=== PATIENT | male | born 1940 | race Caucasian/White ===

== ENCOUNTER 2018-10-30 09:05 | Day surgery (SDC) | payer MEDICARE ==
[~2018-10-30] VITALS: Ht 172.7 cm; Wt 78.5 kg
[~2018-10-30 09:05] MED LIST: ASPI1TAB PO; BALANCED SALT IRRIGATION SOLUTION 500ML BAG (FOR OR EYE MACHINE) As Ordered ONE; BANO25TA PO; BIMA01SOL OU; CEFUROXIME 1MG/0.1ML INTRACAMERAL INJ As Ordered ONE; COMB0.2S OU; CYCLOPENTOLATE 2% OPHTH SOLN 2ML BTL OD ONE; HEALON DUET PRO(HEALON 10MG/ML 0.55ML & HEALON ENDOCOAT 30MG/ML 0.85ML) As Ordered ONE; LIDOCAINE 1% SDV 5 ML VIAL As Ordered ONE; LIDOCAINE 3.5 % 1ML OPHTH TOPICAL GEL OU ONE; OFLOXACIN 0.3 % (OCUFLOX) OPTH SOL 5ML OD ONE; PHENYLEPHRINE 2.5% OPHTH SOL 2ML OD ONE; PHENYLEPHRINE HCL 10 % OPHTH. SOL 5ML OD PRN; POVIDONE-IODINE 5% OPHTH PREP SOL 30ML As Ordered ONE; PRED10PA2 PO; TOBRADEX OPHTH OINT 3.5 GM As Ordered ONE; TROPICAMIDE 1% OPHTH SOLN 2ML OD ONE; mitoMYcin 0.2 MG/VIAL KIT FOR OPHTHALMIC USE (J7315 PER 0.2MG) As Ordered ONE
[2018-10-30] MEDS ORDERED: ASPIRIN 81 MG CHEW TABLET PO STA (09:59)
[2018-10-30 12:00] VITALS: BP 144/82
[2018-10-30] MEDS ORDERED: MIDAZOLAM INJ 2 MG/2 ML VIAL (J2250) As Ordered ONE (12:19)
[2018-10-30] MEDS ORDERED: fentaNYL 100 MCG/2 ML INJECTION (J3010) As Ordered ONE (12:19)
[2018-10-30] MEDS ORDERED: PROPOFOL 200 MG/20 ML VIAL As Ordered ONE (12:20)
[2018-10-30] MEDS ORDERED: hydrALAZINE INJ 20 MG/ML VIAL As Ordered ONE (12:20)
--- NOTE | 2018-11-01 09:58 | RO ---
DATE OF PROCEDURE: 10/30/2018 PREOPERATIVE DIAGNOSES: Age-related nuclear cataract and open-angle glaucoma right eye. POSTOPERATIVE DIAGNOSES: Age-related nuclear cataract and open-angle glaucoma right eye. PROCEDURE PERFORMED: Phacoemulsification with posterior chamber intraocular lens implantation and insertion of Ex-Press shunt right eye. Lens used is AU00T0, 23.5 diopters. SURGEON: Zahira Valverde MD SLAG WHEELER: ANESTHESIA: Topical with sedation. DESCRIPTION OF PROCEDURE: Patient was prepped and draped in the usual fashion. Lid speculum was placed between the lids. First, attention was directed superiorly. The conjunctiva was opened up and in a fornix-based conjunctival flap, and then a Wet-Field cautery was used to cauterize the overlying sclera. A straight and bent crescent knives were used to create a triangular flap. It was carried up onto clear cornea. A pledget of mitomycin C was placed underneath the conjunctiva and left in place for 1 minute and irrigated with a copious amount of balanced salt solution. Attention was then directed to the cataract and to the temporal limbal area. The eye was fixated. A stab incision was made into the anterior chamber. 1% nonpreserved lidocaine was instilled, and viscoelastic was instilled. The eye was again fixated, and a 2.4 mm keratome was used to make a clear corneal temporal limbal incision. Malyugin ring was then placed into an manager finance and injected into the eye, first the distal scroll engaging the iris and then the proximal scroll engaged the iris. The distal scroll was placed with manipulation hook. The capsulorrhexis was begun with 30-gauge bent needle and carried out in circular fashion with capsulorrhexis forceps. Lens was hydrodissected, and the phacoemulsification unit was used to groove the nucleus in two meridians. The nucleus was cracked into four quadrants. Each quadrant was removed with the phacoemulsification unit. Any remaining cortex was removed with the irrigation and aspiration (I and A) unit. Capsular bag was refilled with viscoelastic, and a posterior chamber intraocular lens was placed into the capsular bag without difficulty. Any remaining viscoelastic was removed with the I and A unit, and the wound was sealed with one #10-0 nylon suture with the nylon buried. Attention was then directed superior again. The flap was reflected toward the cornea, and a 25-gauge needle was used to make a needle tract into the anterior chamber. The Ex-Press shunt was placed through the pre-made needle tract, and aqueous freely flowed. The scleral flap was tacked down with one #10-0 nylon suture at the apex. Conjunctiva was closed using two #8-0 Vicryl sutures, one at each apex, and one #10-0 nylon suture at the __cornea to the conjunctiva. TobraDex ointment was applied. Patch and shield were placed. Patient tolerated procedure well and went to recovery [facility] condition. [facility]
== END 2018-10-30 12:05 | disposition home or self-care (01) ==
LOC: M SDC 09:05
PROVIDERS: ATTEND Ophthalmology
DX: H25.11 Age-related nuclear cataract, right eye (principal); H40.10X0 Unspecified open-angle glaucoma, stage unspecified; I10 Essential (primary) hypertension; L40.8 Other psoriasis; F17.210 Nicotine dependence, cigarettes, uncomplicated; Z98.61 Coronary angioplasty status; I25.10 Atherosclerotic heart disease of native coronary artery without angina pectoris; Z79.82 Long term (current) use of aspirin; Z79.51 Long term (current) use of inhaled steroids
CPT/HCPCS: 66183; 66984; C1783; J2250; J3010; J7315; V2632

== ENCOUNTER 2019-05-14 16:27 | Inpatient (IN) | payer MEDICARE ==
[~2019-05-14] VITALS: Ht 170.2 cm; Wt 58.8 kg
[~2019-05-14 16:27] MED LIST changes: -ASPI1TAB PO; +ASPI81TA26 PO; -BALANCED SALT IRRIGATION SOLUTION 500ML BAG (FOR OR EYE MACHINE) As Ordered ONE; -CEFUROXIME 1MG/0.1ML INTRACAMERAL INJ As Ordered ONE; -CYCLOPENTOLATE 2% OPHTH SOLN 2ML BTL OD ONE; -HEALON DUET PRO(HEALON 10MG/ML 0.55ML & HEALON ENDOCOAT 30MG/ML 0.85ML) As Ordered ONE; -LIDOCAINE 1% SDV 5 ML VIAL As Ordered ONE; -LIDOCAINE 3.5 % 1ML OPHTH TOPICAL GEL OU ONE; -OFLOXACIN 0.3 % (OCUFLOX) OPTH SOL 5ML OD ONE; -PHENYLEPHRINE 2.5% OPHTH SOL 2ML OD ONE; -PHENYLEPHRINE HCL 10 % OPHTH. SOL 5ML OD PRN; -POVIDONE-IODINE 5% OPHTH PREP SOL 30ML As Ordered ONE; -TOBRADEX OPHTH OINT 3.5 GM As Ordered ONE; -TROPICAMIDE 1% OPHTH SOLN 2ML OD ONE; -mitoMYcin 0.2 MG/VIAL KIT FOR OPHTHALMIC USE (J7315 PER 0.2MG) As Ordered ONE
[2019-05-14 18:43] VITALS: BP 159/91
[2019-05-14] MEDS ORDERED: ACETAMINOPHEN TAB 650MG DOSE (2X325MG) PO PRN (19:00)
[2019-05-14] MEDS ORDERED: MOM 30ML SUSPENSION UDC PO PRN (19:00)
[2019-05-14] MEDS ORDERED: MAALOX 30 ML SUSP *UDC PO PRN (19:00)
[2019-05-14 19:20] VITALS: BP 152/78
[2019-05-14] MEDS ORDERED: QUEtiapine FUMARATE 25 MG TAB PO STA (19:26)
[2019-05-14] MEDS ORDERED: HALOPERIDOL 5 MG/ML VIAL (J1630) IV PRN (19:30)
[2019-05-14 19:47] LABS: HEMATOCRIT 38.3 % (42.0-52.0); HEMOGLOBIN 12.9 g/dl (13.5-17.5); MEAN CORPUSCULAR HEMOGLOBIN 31.5 pg (27.0-33.0); MEAN CORPUSCULAR HGB CONC 33.7 g/dl (32.0-36.5); MEAN CORPUSCULAR VOLUME 93.6 fl (80.0-96.0); PLATELET COUNT, AUTOMATED 202 10^3/uL (150-450); RED BLOOD COUNT 4.09 10^6/uL (4.30-6.10); WHITE BLOOD COUNT 14.8 10^3/uL (4.0-10.0)
[2019-05-14 20:00] VITALS: BP 153/82
[2019-05-14 20:16] LABS: BLOOD UREA NITROGEN 22 MG/DL (7-18); C REACTIVE PROTEIN QUANTITATIV < 0.30 MG/DL (0.00-0.30); CALCIUM LEVEL 10.3 MG/DL (8.8-10.2); CARBON DIOXIDE LEVEL 29 MEQ/L (21-32); CHLORIDE LEVEL 106 MEQ/L (98-107); CREATININE FOR GFR 1.38 MG/DL (0.70-1.30); ERYTHROCYTE SEDIMENTATION RATE 25 mm/hr (0-20); FREE T4 1.11 NG/DL (0.76-1.46); GLOMERULAR FILTRATION RATE 53.3 (>42); GLUCOSE, FASTING 139 MG/DL (70-100); SODIUM LEVEL 141 MEQ/L (136-145); THYROID STIMULATING HORMONE 0.893 uIU/ML (0.358-3.740); TROPONIN I < 0.02 NG/ML (< 0.10)
[2019-05-14 20:18] LABS: TOTAL T3 71.9 NG/DL (60.0-181.0); VITAMIN B12 LEVEL 357 PG/ML (247-911)
[2019-05-14] MEDS ORDERED: METOPROLOL 5 MG/5 ML VIAL IV PRN (20:45)
[2019-05-14] MEDS ORDERED: HALOPERIDOL 5 MG/ML VIAL (J1630) IM PRN (21:00)
[2019-05-14] MEDS: DOCUSATE SODIUM 100 MG CAP PO SCH (21:00)
[2019-05-14] MEDS: QUEtiapine FUMARATE 25 MG TAB PO SCH (21:00)
--- NOTE | 2019-05-14 22:06 | HPEPDOC ---
General Date of Admission May 14, 2019 at 18:40 Date of Service: May 14, 2019 Primary Care Physician: A Attending Physician: ANDRE HURST MD Chief Complaint Source: RN/MD, Old records Exam Limitations: Clinical conditions, Dementia, Hard of hearing History of Present Illness This admission was done and 05/14/2019 .This is a 78-year-old male with history of hemorrhagic CVA and subdural hematoma about 3-4 months ago. Patient was doing well until last night he developed some hallucination. This morning at 1 AM in the morning patient woke up screaming was unable to use his word and confused and agitated. He was brought to [facility] and CAT scan 2 was done and was negative for bleed or infarct. Patient blood pressure systolic was 200 and he was given hydralazine 20 mg.. He was transferred here for higher level of care because of no neurology at that hospital,.At present time, patient still confused but according to the family patient was having normal conversation until last night. Patient is agitated and restless so Haldol IM has been ordered for agitation. MRI order to rule out CVA. Case discussed with neurology's and Seroquel was added 25 mg twice a day and also EEG patient is placed on Observation telemetry.patient is a high risk for fall because of his increased agitation , so I placed him on1-1. Observation and initiate Haldol IM when necessary Home Medications Scheduled Aspirin (Aspirin EC) 81 Mg Tab, 162 MG PO DAILY, (Reported) Bisoprolol Fumarate (Bisoprolol Fumarate) 5 Mg Tablet, 2.5 MG PO DAILY, (Reported) Miscellaneous Medications [Patient Comments] , (Reported) PATIENT UNABLE TO ASSIST WITH MEDICATION RECONCILIATION. FAMILY MEMBER WHO ACCOMPANIED HIM DID NOT KNOW HIS MEDICATIONS. INFORMATION OBTAINED FROM PHARMACY AND FAMILY MEMBER PRESENT FOR ADMISION TO [facility] Allergies Coded Allergies: No Known Allergies (Unverified , 10/24/18) Past Medical History Medical History Chronic COPD Hypertension. Hemorrhagic CVA. History of atypical chest pain. Glaucoma legally blind hard of hearing. Surgical History right cataract surgery, glaucoma surgery Family History Significant Family History: Noncontributory, Hyperlipidemia, Other (unable to review due to confusion) Unable to review due to confusion Social History * Smoker: former Smoker Alcohol: Denies Drugs: denies Per son patient smoke but no alcohol or drugs A-FIB/CHADSVASC A-FIB History Current/History of A-Fib/PAF?: No Current PO Anticoag Therapy: No (SCD for DVT prophylaxis) Review of Systems Other systems Positive for confusion, positive agitation Positive blindness, positive hard of hearing. The rest of the 12 point review of systems normal Physical Examination General Exam: Positive: Other ( blindness and deaf) Eye Exam: Positive: PERRLA ENT Exam: Positive: Atraumatic, Pharynx Normal Neck Exam: Positive: Supple, JVD, thyromegaly; Negative: +2 carotid pulse wo bruit, Lymphadenopathy, Other Chest Exam: Positive: Clear to auscultation, Normal air movement Heart Exam: Positive: Rate Normal, Regular Rhythm Telemetry: Positive: No significant arrhythmia Abdomen Exam: Positive: Normal bowel sounds, Soft Extremity Exam: Positive: Normal pulses Skin Exam: Positive: Nl turgor and temperature Neuro Exam: Positive: Other (alert but confused. Moves all extremities but some weakness equally. Unable to do full neurological exam) Psych Exam: Positive: Mental status NL, Mood NL, Oriented x 3 Vital Signs Vital Signs Date Time Temp Pulse Resp B/P (MAP) Pulse Ox O2 Delivery O2 Flow Rate FiO2 05/14/19 20:00 99.2 106 20 153/82 (105) 98 Laboratory Data Labs 24H Laboratory Tests 2 05/14/19 19:31: Nucleated Red Blood Cells % (auto) 0.0, Erythrocyte Sedimentation Rate 25H, Anion Gap 6L, Glomerular Filtration Rate 53.3, Lactic Acid Level 1.7, Blood Urea Nitrogen 22H, Creatinine 1.38H, Sodium Level 141, Potassium Level 4.0, Chloride Level 106, Carbon Dioxide Level 29, Calcium Level 10.3H, Ammonia < 10, Troponin I < 0.02, C-Reactive Protein, Quantitative < 0.30, Vitamin B12 Level 357, Thyroid Stimulating Hormone (TSH) 0.893, Free Thyroxine 1.11, Total Triiodothyronine 71.9 CBC/BMP Laboratory Tests 05/14/19 19:31 Red Blood Count 4.09 L, Mean Corpuscular Volume 93.6, Mean Corpuscular Hemoglobin 31.5, Mean Corpuscular Hemoglobin Concent 33.7, Red Cell Distribution Width 13.2, Calcium Level 10.3 H Microbiology Microbiology 05/14/19 Blood Culture, Received Pending Assessment/Plan #1 acute delirium; could be secondary to CVA versus psychosis. Neuro check every 4 hour observation telemetry, neurology consult, will start patient on Haldol when necessary by station and also we added Seroquel 25 mg twice a day, neurology. K discuss with neurology. Patient is a fall risks. He is very agitated We will do 1-1 observation for fall percussion. Since patient has a history of subdural hematoma from fall #2. Expressive aphasia; improving CAT scan head so far negative for bleed or infarct. MRI of the brain in order, no check every hour. We will keep nothing by mouth for now and get speech eval in a.m.,. Discussed with neurology #3 acute encephalopathy; could be secondary to psychosis versus CVA or infection. UA shows some bacteria but no leukocyte. We will get urine culture and blood culture. #4. Muscle weakness,. Get PT, OT eval and case managed for discharge pending. #5. Accelerated hypertension. Patient received hydralazine before transfer to this hospital. We will keep blood pressure between 160 and 175 systolic. Initial blood pressure was 200 systolic. Will do Lopressor 5 mg IV every 6 hours when necessary for blood pressure systolic above 175. #6. History of hemorrhagic CVA and subdural hematoma. So far. CAT scan head negative for bleed. #7. Questionable Lewy body dementia per Family. Neurology is aware. #8. Chronic COPD. Patient not wheezing at present, so will do albuterol when necessary for shortness of breath #9. ALBERT Vs CKD No baseline creatinine in our system. Creatinine from [place] was also similar possibly due to Acute urinary retention had straight cath done with output of 600 ml. This could have been contributing to his agitation also. bladder scan prn and straight cath > 300 ml SCD to lower extremity for DVT prophylaxis. Patient stable. Case discussed with Dr. Hurst hospitalists. Case also discussed with family at bedside and also with telemetry nurse . Time spent 55 minutes Plan / VTE VTE Prophylaxis Ordered?: Yes VTE Exclusion Pharmacological: Bleeding Risk Attending Note Attending Note I have seen and evaluated the patient. I have reviewed the above note and discussed the assessment and plan with the PA and agree with the documentation above. ANALI DENNISON PA-C May 14, 2019 21:29 ANDRE HURST MD May 15, 2019 01:51
[2019-05-14] MEDS ORDERED: PATIENT COMMENTS (22:13)
[2019-05-14] MEDS: NS 1,000 ML IV SCH (22:20)
[2019-05-14 22:27] LABS: APPEARANCE, URINE CLEAR (CLEAR); BACTERIA, URINE AUTO NEGATIVE (NEGATIVE); BILIRUBIN, URINE AUTO NEGATIVE (NEGATIVE); BLOOD, URINE BLOOD 3+ (NEGATIVE); COLOR, URINE YELLOW (YELLOW); GLUCOSE, URINE (UA) AUTO NEGATIVE (NEGATIVE); KETONE, URINE AUTO TRACE mg/dL (NEGATIVE); LEUKOCYTE ESTERASE, URINE AUTO NEGATIVE (NEGATIVE); MUCUS, URINE SMALL (NEGATIVE); NITRITE, URINE AUTO NEGATIVE (NEGATIVE); PROTEIN, URINE AUTO NEGATIVE (NEGATIVE); RBC, URINE AUTO 89 /HPF (0-3); SPECIFIC GRAVITY URINE AUTO 1.013 (1.002-1.035); SQUAMOUS EPITHELIAL CELL UR AU 0 /HPF (0-6); UROBILINOGEN, URINE AUTO 0.2 mg/dL (0.0-2.0); WBC, URINE AUTO 13 /HPF (0-3)
[2019-05-14] MEDS ORDERED: BISO5TAB5 PO (22:28)
[2019-05-14 22:50] LABS: AMPHETAMINES URINE REFLEX NEGATIVE (NEGATIVE); BARBITURATES URINE REFLEX NEGATIVE (NEGATIVE); BENZODIAZEPINES URINE REFLEX NEGATIVE (NEGATIVE); CANNABINOIDS URINE REFLEX NEGATIVE (NEGATIVE); COCAINE METABOLITE URINE REFLE NEGATIVE (NEGATIVE); METHADONE URINE REFLEX NEGATIVE (NEGATIVE); OPIATES URINE REFLEX NEGATIVE (NEGATIVE); PHENCYCLIDINE URINE REFLEX NEGATIVE (NEGATIVE)
[2019-05-14 23:59] VITALS: BP 165/98
[2019-05-15] MEDS: LABETALOL HCL 100 MG/20 ML VIAL IV SCH ×3 (02:00→14:00)
[2019-05-15] MEDS: HALOPERIDOL 5 MG/ML VIAL (J1630) IV PRN ×2 (03:17→12:38)
[2019-05-15 04:00] VITALS: BP 174/105
[2019-05-15 04:28] LABS: BASO # 0.1 10^3/uL (0.0-0.2); BASO % 0.7 % (0.0-1.0); EOS # 0.1 10^3/uL (0.0-0.50); EOS % 0.7 % (0.0-3.0); HEMATOCRIT 33.5 % (42.0-52.0); HEMOGLOBIN 11.3 g/dl (13.5-17.5); LYMPH # 1.5 10^3/uL (1.5-4.5); LYMPH % 12.1 % (24.0-44.0); MEAN CORPUSCULAR HEMOGLOBIN 31.7 pg (27.0-33.0); MEAN CORPUSCULAR HGB CONC 33.7 g/dl (32.0-36.5); MEAN CORPUSCULAR VOLUME 94.1 fl (80.0-96.0); MONO # 1.2 10^3/uL (0.0-0.8); MONO % 9.9 % (0.0-5.0); NEUTROPHILS # 9.3 10^3/uL (1.8-7.7); NEUTROPHILS % 76.3 % (36.0-66.0); PLATELET COUNT, AUTOMATED 179 10^3/uL (150-450); RED BLOOD COUNT 3.56 10^6/uL (4.30-6.10); WHITE BLOOD COUNT 12.1 10^3/uL (4.0-10.0)
[2019-05-15 04:59] LABS: CALCIUM LEVEL 9.4 MG/DL (8.8-10.2); CREATININE FOR GFR 1.4 MG/DL (0.70-1.30); GLOMERULAR FILTRATION RATE 52.5 (>42)
[2019-05-15 08:00] VITALS: BP 214/120
[2019-05-15] MEDS: QUEtiapine FUMARATE 25 MG TAB PO SCH ×2 (08:18→21:24)
[2019-05-15] MEDS: DOCUSATE SODIUM 100 MG CAP PO SCH ×2 (08:18→21:24)
[2019-05-15] MEDS: ENOXAPARIN 40 MG/0.4 ML SYRINGE (J1650) SC SCH (08:18)
[2019-05-15] MEDS: ASPIRIN 81 MG ENTERIC TAB PO SCH (08:18)
[2019-05-15] MEDS: NS 1,000 ML IV SCH (10:30)
[2019-05-15 12:00] VITALS: BP 167/84
[2019-05-15 16:00] VITALS: BP 130/74
[2019-05-15] MEDS ORDERED: METOPROLOL 5 MG/5 ML VIAL IV PRN (17:15)
--- NOTE | 2019-05-15 17:17 | IPNPDOC ---
Text Note Date of Service The patient was seen on 05/15/19. NOTE S: sitter present. patient is blind and severely hard of hearing. he is still confused (talking about home, kitchen,etc) but is not agitated. He has not yet received MRI or EEG as staff states he is not cooperative and claustrophobic. Avoiding benzodiazepines given his altered mental status. He states no pain, feels fine. O: Vitals as below General: confused, alert but not oriented to place,time. SKIN: lavern macular rash, non confluent located over arms bilaterally and thighs/knees. does not involve face, palms, soles of feet , abdomen, chest or back. HRRR LCTA Ext: no edema Neuro: moving all 4 extremities. 1 person assist to walk to bathroom commode A/P: 1) acute delirium/ encephalopathy - unclear etiology (ie toxic or metabolic) vs CVA. CXR pending Neuro checks; neurology consult; MRI pending (not yet done) Haldol IM prn agitation; started on Seroquel 25 mg twice a day last night; Blood cultures and urine cultures pending Speech therapy recommended dysphagia diet with pureed solids and thin liquids via small straw sips Patient is cleared by PT as not needing rehab or aggressive therapies 2) rash - unknown onset or duration. Has leukocytosis. no new medications except haldol and seroquel and does not appear to be maculopapular drug ex anthem. monitor for now. blood cultures pending 3) Accelerated hypertension. - blood pressures controlled after receiving medications. monitor for now 4) . History of hemorrhagic CVA and subdural hematoma. - CT negative; await MRI 5) Questionable Lewy body dementia per Family. Neurology consulted 6) COPD without exacerbation- stable 7) ALBERT Vs CKD with urinary retention No baseline creatinine in our system. Creatinine from [place] was also similar bladder scan/straight cath prn. start FLOMAX DVT prophylaxis: SCD ,enoxaprin Current Medications Medications (Trade) Dose Ordered Sig/Elizabeth Route PRN Reason Start Time Stop Time Status Last Admin Dose Admin Acetaminophen (Tylenol Tab) 650 mg Q4H PRN PO PAIN OR FEVER 05/14/19 19:00 Al Hydrox/Mg Hydrox/Simethicone (Mylanta) 30 ml DAILY PRN PO DYSPEPSIA 05/14/19 19:00 Aspirin (Ecotrin) 162 mg DAILY PO 05/15/19 09:00 05/15/19 08:18 Docusate Sodium (Colace) 100 mg BID PO 05/14/19 21:00 05/15/19 08:18 Enoxaparin Sodium (Lovenox) 40 mg DAILY SC 05/15/19 09:00 05/15/19 08:18 Haloperidol (Haldol) 1 mg Q6HP PRN IM AGITATION 05/14/19 21:00 05/15/19 01:38 DC 05/14/19 21:06 Haloperidol (Haldol) 1 mg Q6HP PRN IV AGITATION 05/14/19 19:30 05/14/19 21:01 DC Haloperidol (Haldol) 2 mg Q6HP PRN IV AGITATION 05/15/19 01:45 05/15/19 12:38 Home Med (Med Rec Complete!) ASDIRECTED XX 05/14/19 22:30 05/14/19 22:30 DC Labetalol HCl (Normodyne, Trandate) 5 mg Q6H IV 05/15/19 02:00 05/15/19 08:14 Magnesium Hydroxide (Milk Of Magnesia) 30 ml DAILY PRN PO CONSTIPATION 05/14/19 19:00 Metoprolol Tartrate (Lopressor) 5 mg Q6HP PRN IV PRN for sbp>175 05/14/19 20:45 05/15/19 01:38 DC Quetiapine Fumarate (SEROquel) 25 mg BID PO 05/14/19 21:00 05/15/19 08:18 Quetiapine Fumarate (SEROquel) 25 mg BID STAT PO 05/14/19 19:26 05/14/19 20:33 DC Sodium Chloride 1,000 ml @ 84 mls/hr [id number] IV 05/14/19 19:26 05/15/19 10:30 VS,Fishbone, I+O VS, Fishbone, I+O Laboratory Tests 05/14/19 19:31 Red Blood Count 4.09 L, Mean Corpuscular Volume 93.6, Mean Corpuscular Hem oglobin 31.5, Mean Corpuscular Hemoglobin Concent 33.7, Red Cell Distribution Width 13.2, Calcium Level 10.3 H 05/15/19 04:19 Red Blood Count 3.56 L, Mean Corpuscular Volume 94.1, Mean Corpuscular Hemoglobin 31.7, Mean Corpuscular Hemoglobin Concent 33.7, Red Cell Distribution Width 13.3, Calcium Level 9.4, Neutrophils (%) (Auto) 76.3 H, Lymphocytes (%) (Auto) 12.1 L, Monocytes (%) (Auto) 9.9 H, Eosinophils (%) (Auto) 0.7, Basophils (%) (Auto) 0.7, Neutrophils # (Auto) 9.3 H, Lymphocytes # (Auto) 1.5, Monocytes # (Auto) 1.2 H, Eosinophils # (Auto) 0.1, Basophils # (Auto) 0.1 Vital Signs Date Time Temp Pulse Resp B/P (MAP) Pulse Ox O2 Delivery O2 Flow Rate FiO2 05/15/19 14:00 87 148/70 05/15/19 08:00 97.4 22 94 I&O- Last 24 Hours up to 6 AM 05/15/19 05:59 Intake Total 466 ml Output Total 600 ml Balance -134 ml GEORGE BEACH DO May 15, 2019 17:17
[2019-05-15] MEDS ORDERED: SLF 3 ML SYR IV PRN (17:30)
--- NOTE | 2019-05-15 18:06 | REP ---
Clinical: Aspiration. Technique: AP and lateral . Comparison: None . Findings: The mediastinum and cardiac silhouette are stable and within normal limits for portable technique. The lung [place] demonstrate diffuse chronic interstitial changes without acute consolidation, effusion, or pneumothorax. Skeletal structures are intact. Impression: No acute cardiopulmonary process appreciated. No acute solid lesion or effusion. Electronically Signed by Cyril Navas MD 05/15/2019 05:58 P
[2019-05-15 20:00] VITALS: BP 158/70
[2019-05-15] MEDS ORDERED: OLANZapine 2.5MG TABLET PO ONE ×2 (21:45→23:15)
[2019-05-15] MEDS: SLF 3 ML SYR IV SCH (22:08)
[2019-05-16] VITALS: BP 150/84
[2019-05-16 04:00] VITALS: BP 162/81
[2019-05-16] MEDS ORDERED: diphenhydrAMINE INJ 50MG/ML VIAL (J1200) IV ONE ×2 (05:00)
[2019-05-16 05:20] VITALS: BP 174/98
[2019-05-16] MEDS: amLODIPine 5 MG TAB PO SCH ×2 (05:22→06:48)
[2019-05-16] MEDS: SLF 3 ML SYR IV SCH (06:48)
[2019-05-16 06:52] VITALS: BP 182/84
[2019-05-16 08:00] VITALS: BP 157/97
[2019-05-16] MEDS ORDERED: BISOPROLOL FUM 2.5 MG PER 1/2TAB PO SCH (09:00)
[2019-05-16] MEDS ORDERED: LISINOPRIL *2.5 MG* TAB PO SCH (09:00)
[2019-05-16] MEDS ORDERED: QUEtiapine FUMARATE 25 MG TAB PO SCH (09:00)
[2019-05-16] MEDS ORDERED: BISOPROLOL FUMARATE 5 MG TAB PO SCH (09:00)
[2019-05-16] MEDS: DOCUSATE SODIUM 100 MG CAP PO SCH (09:04)
[2019-05-16 09:05] VITALS: BP 157/97
[2019-05-16] MEDS: ASPIRIN 81 MG ENTERIC TAB PO SCH (09:05)
[2019-05-16] MEDS: ENOXAPARIN 40 MG/0.4 ML SYRINGE (J1650) SC SCH (09:06)
--- NOTE | 2019-05-16 09:55 | REP ---
CT BRAIN WITHOUT CONTRAST: HISTORY: CVA. Altered mental status. No comparison brain imaging. FINDINGS: Preliminary digital rn delivery radiograph is unremarkable. Bone window settings show no bony calvarial lesion. Visualized paranasal sinuses are clear. No intraorbital abnormality is seen. There is moderate vascular calcification in the distal vertebral and distal carotid arteries bilaterally. On soft tissue window settings, there is moderate generalized atrophy. There is physiologic calcification of the basal ganglia. There is no evidence of intracranial hemorrhage. There is an old inferior cerebellar hemisphere infarct on the right. There is a small old lacunar infarct in the periventricular white matter of the right frontal lobe posteriorly. There is no CT evidence of acute infarction, hemorrhage, mass, extra-axial fluid collection or midline shift. IMPRESSION: Findings consistent with old infarcts in the right inferior cerebellar hemisphere, and in the right posterior frontal lobe periventricular white matter. Diffuse atrophy and vascular calcification. No acute intracranial abnormality seen. Electronically Signed by Uvaldo Quick MD 05/16/2019 10:16 A
[2019-05-16 10:29] LABS: HEMATOCRIT 36.8 % (42.0-52.0); HEMOGLOBIN 12.1 g/dl (13.5-17.5); MEAN CORPUSCULAR HEMOGLOBIN 31.6 pg (27.0-33.0); MEAN CORPUSCULAR HGB CONC 32.9 g/dl (32.0-36.5); MEAN CORPUSCULAR VOLUME 96.1 fl (80.0-96.0); PLATELET COUNT, AUTOMATED 173 10^3/uL (150-450); RED BLOOD COUNT 3.83 10^6/uL (4.30-6.10); WHITE BLOOD COUNT 11.2 10^3/uL (4.0-10.0)
[2019-05-16 10:43] LABS: CALCIUM LEVEL 9.6 MG/DL (8.8-10.2); CREATININE FOR GFR 1.27 MG/DL (0.70-1.30); GLOMERULAR FILTRATION RATE 58.7 (>42); POTASSIUM SERUM 3.4 MEQ/L (3.5-5.1)
[2019-05-16] MEDS ORDERED: LISI-1046 PO (10:53)
--- NOTE | 2019-05-16 11:01 | IPNPDOC ---
Text Note Date of Service The patient was seen on 05/16/19. NOTE S: patient refused BP medications this AM (Norvasc).He required olanzapine 2.5mg at 2200 and 2320 last night. Son present and states he is at baseline and normally agitated. Son and patient want to return home. O: Vitals as below General: cooperative with son in room. alert/oriented HRRR LCTA Skin: no rash A/P: 1) acute delirium/ encephalopathy - unclear etiology (ie toxic or metabolic) vs CVA. - RESOLVED no signs of infection or aspiration. Neuro checks; neurology consult; MRI cancelled - as patient refusing; Check CT Head and if no changes, discharge home, since he is back to baseline started on Seroquel 25 mg twice a day - son states patient at baseline and will not continue med at home Blood cultures and urine cultures negative so far. Speech therapy recommended dysphagia diet with pureed solids and thin liquids via small straw sips - this was during delerium phase - will request repeat ST eval. Patient is cleared by PT as not needing rehab or aggressive therapies 2) rash - resolved 3) Essential HTN - adjust BP medication for better coverage - increase bistopolol to 5mg daily, dc norvasc and add lisinopril 2.5mg BID; increases in Bp may be due to his agitation at being in hospital. son will monitor BP at home and decide if he wants to continue with higher doses of med. 4) . History of hemorrhagic CVA and subdural hematoma. - initial CT negative; will repeat and if negative DC Home. Hesitant to increase ASA at this time. Will need to follow up with his outpatient neurologist. 5) Questionable Lewy body dementia per Family. Neurology consulted 6) COPD without exacerbation- stable 7) ALBERT Vs CKD with urinary retention - RESOVLED VS,Fishbone, I+O VS, Fishbone, I+O Vital Signs Date Time Temp Pulse Resp B/P (MAP) Pulse Ox O2 Delivery O2 Flow Rate FiO2 05/16/19 06:52 182/84 (116) 05/16/19 06:48 95 05/16/19 04:00 98.1 20 96 I&O- Last 24 Hours up to 6 AM 05/16/19 06:00 Intake Total 300 ml Output Total 1350 ml Balance -1050 ml GEORGE BEACH DO May 16, 2019 07:38
--- NOTE | 2019-05-16 17:16 | DS.PDOC ---
Discharge Summary General Date of Admission May 14, 2019 at 18:40 Date of Discharge 05/16/19 Attending Physician: GEORGE BEACH DO Specialist/Consultants Involve: RESHMA AJ MD Discharge Summary PROCEDURES PERFORMED DURING STAY:none ADMITTING DIAGNOSES: acute delirium; Expressive aphasia; acute encephalopathy Muscle weakness,. Accelerated hypertension. History of hemorrhagic CVA and subdural hematoma. Chronic COPD. ALBERT Vs CKD DISCHARGE DIAGNOSES: 1) acute delirium/ encephalopathy - unclear etiology (ie toxic or metabolic) vs CVA. - RESOLVED 2) rash/ dermatitis - resolved 3) Essential HTN 4) History of hemorrhagic CVA and subdural hematoma. 5) Questionable Lewy body dementia per Family - no official diagnosis. 6) COPD without exacerbation- stable 7) ALBERT with urinary retention - RESOLVED COMPLICATIONS/CHIEF COMPLAINT: Altered Mental Status. HISTORY OF PRESENT ILLNESS: 78-year-old male with history of hemorrhagic CVA and subdural hematoma about 3-4 months ago. Patient was doing w ell until last night he developed some hallucination. This morning at 1 AM in the morning patient woke up screaming was unable to use his word and confused and agitated. He was brought to [facility] and CAT scan 2 was done and was negative for bleed or infarct. Patient blood pressure systolic was 200 and he was given hydralazine 20 mg.. He was transferred here for higher level of care because of no neurology at that hospital,.At present time, patient still confused but according to the family patient was having normal conversation until last night. Patient is agitated and restless so Haldol IM has been ordered for agitation. MRI order to rule out CVA. Case discussed with neurology's and Seroquel was added 25 mg twice a day and also EEG patient is placed on Observation telemetry.patient is a high risk for fall because of his increased agitation , so I placed him on1-1. Observation and initiate Haldol IM when necessary See H&P for detials HOSPITAL COURSE: patient was admitted. his speech cleared and he had no motor weakness. He was agitated, verbally aggressive and refused tele, MRI, EEG. He was non cooperative for neuro checks. He was started on Seroquel 25mg and Haldol for HS sedation. Workup showed no source for infectious etiology (negative blood cultures, urine cultures). Speech therapy consulted and recommended dysphagia diet with pureed solids and thin liquid via straw. His blood pressure was elevated but unclear if this was due to agitation. His BP medications were adjusted - increased bistoprolol to 5mg daily and added lisinopril 2.5mg BID. His mentation and speech cleared and son visited on day of discharge and states patient was back to his normal baseline (which includes agitation/angry demeanor). Speech therapy was reconsulted and swallow improved and "Son educated on risk of aspiration & airway occlusion if pt is provided w/ regular solids and allowed to feed himself, d/t impulsive bite size, pace of intake, & poor positioning. Educated on allowed & not allowed level 2 diet options and recommendations for upright in chair & small bite/sip. " Patient agreed to have CT scan performed prior to discharge which showed no c hange compared to admission. patient is being discharge in stable condition and will follow up with his nuerologist in [place]. DISCHARGE MEDICATIONS: Please see below. ALLERGIES: Please see below. PHYSICAL EXAMINATION ON DISCHARGE: VITAL SIGNS: Please see below. General: cooperative with son in room. alert/oriented HRRR LCTA Skin: no rash LABORATORY DATA: Please see below. ACTIVITY: as tolerated DIET: pureed with thin liquids/straw until re-evaluated as outpatient by . DISCHARGE PLAN: discharge home DISCHARGE INSTRUCTIONS: 1. follow up with neurologist in 1-2 weeks 2. follow up with PCP in 5-7 days for recheck 3. Dysphagia diet precautions 4. discussed with son elevated BP and medication side effect profile/use DISCHARGE CONDITION: stable TIME SPENT ON DISCHARGE: 35 minutes. Vital Signs/I&Os Vital Signs Date Time Temp Pulse Resp B/P (MAP) Pulse Ox O2 Delivery O2 Flow Rate FiO2 05/16/19 09:05 157/97 05/16/19 09:04 90 05/16/19 08:00 98.0 20 98 I&O- Last 24 Hours up to 6 AM 05/16/19 06:00 Intake Total 300 ml Output Total 1350 ml Balance -1050 ml Laboratory Data Labs 24H Laboratory Tests 2 05/16/19 10:15: Nucleated Red Blood Cells % (auto) 0.0, Anion Gap 8, Glomerular Filtration Rate 58.7, Blood Urea Nitrogen 16, Creatinine 1.27, Sodium Level 144, Potassium Level 3.4L, Chloride Level 112H, Carbon Dioxide Level 24, Calcium Level 9.6 CBC/BMP Laboratory Tests 05/16/19 10:15 Red Blood Count 3.83 L, Mean Corpuscular Volume 96.1 H, Mean Corpuscular Hemoglobin 31.6, Mean Corpuscular Hemoglobin Concent 32.9, Red Cell Distribution Width 13.5, Calcium Level 9.6 Microbiology Microbiology 05/14/19 Blood Culture - Preliminary, Resulted No growth after 24 hours . All specim... 05/14/19 Urine Culture, Received Pending Discharge Medications Scheduled Aspirin (Aspirin EC) 81 Mg Tab, 162 MG PO DAILY, (Reported) Bisoprolol Fumarate (Bisoprolol Fumarate) 5 Mg Tablet, 2.5 MG PO DAILY, (Reported) Lisinopril (Lisinopril) 2.5 Mg Tablet, 2.5 MG PO BID Allergies Coded Allergies: No Known Allergies (Unverified , 10/24/18) GEORGE BEACH DO May 16, 2019 11:01
--- NOTE | 2019-05-18 15:31 | CR ---
DATE OF CONSULTATION: 05/17/2019 REFERRING PROVIDER: Dr. Julaine Hurst. REASON FOR CONSULTATION: Delirium. HISTORY OF PRESENT ILLNESS: Mauro Trevino is a 78-year-old male with recent cerebrovascular accident (CVA) subdural hematoma approximately 2-4 months ago. The patient has developed acute hallucinations of seeing people and seeing animals. The patient was told that may have Lewy Body dementia in the past. The patient was given Haldol and Seroquel during this hospital stay and improved during the night. The day that I had seen the patient, he was oriented to at least his name. He has significant visual deficits and is legally blind. He can see me and he does blink to threat, but he cannot accurately describe what he sees properly. He is extremely hard of hearing as well. He is able to move his arms and legs equally with reasonable strength, although he does appear to be more ataxic involving the right upper extremity and right lower extremity. He needs assistance to ambulate with a two-person assist. The patient seems to be doing fairly well at this time. An MRI was ordered to rule out a stroke; however, the patient has been unable to relax and comply to get it done. The same thing with an electroencephalogram (EEG). A one-to-one sitter was placed for his safety, as he is a fall risk. He does take a low-dose 81 mg aspirin, two tablets every day. The patient otherwise denies any acute complaints at this time. His son was available at bedside, who was able to provide most of the history. REVIEW OF SYSTEMS: A 14-point review of systems obtained is negative except as per history of present illness (HPI). PAST MEDICAL HISTORY: 1. Chronic obstructive pulmonary disease (COPD). 2. Hypertension. 3. Hemorrhagic cerebrovascular accident (CVA) subdural hematoma. 4. History of atypical chest pain. 5. Glaucoma. 6. Legally blind. 7. Hernia. 8. [id number]. SURGICAL HISTORY: 1. Right cataract surgery. 2. Glaucoma surgery. FAMILY HISTORY: Noncontributory. SOCIAL HISTORY: The patient is a former smoker. Denies use of any alcohol or illicit drugs. ALLERGIES: None. LABORATORY DATA: Erythrocyte sedimentation rate 25. Urinalysis negative Urine toxicology negative. Thyroid stimulating hormone (TSH) 0.893. Ammonia less than 10. BUN 20, creatinine 1.4. WBC count is 12.1, platelets 179, hemoglobin 11.3, hematocrit 33.5. CURRENT MEDICATIONS: - aspirin 162 mg daily - Lovenox 40 mg subcutaneous daily - labetalol 5 mg every 6 hours - Haldol 2 mg by mouth every 6 hours as needed pain - Seroquel 25 mg by mouth twice a day PHYSICAL EXAMINATION: Blood pressure 148/70, pulse rate 87, respiratory rate is 22, oxygenation 94%, temperature 97.4 degrees Fahrenheit. The patient is awake, alert to person, place and time. Speech, language and repetition intact. Pupils are obscured postsurgical. Facial symmetry is preserved. Palate elevates symmetrically. Tongue is midline. No weakness of bilateral deltoids, biceps, triceps, anterior tibialis, quadriceps, iliopsoas 4+ bilaterally. Sensory is intact to light touch in all for extremities. Coordination, ataxia, [id number] involving the right upper extremity. Ataxic right lower extremity noted as well. Gait is unsteady. There is no aphasia. 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 Patient presenting with acute delirium, improving. Unclear etiology at this time. Recommend continuing Seroquel 25 mg by mouth twice a day. Obtain MRI brain without contrast. Obtain EEG. Follow up with the [facility] as an outpatient when safely discharged. History obtained from both the patient and the patient's son.
== END 2019-05-16 14:12 | disposition home or self-care (01) | DRG 71 ==
LOC: M PCU 18:40
PROVIDERS: ADMIT Family Medicine; ATTEND Family Medicine
DX: G93.40 Encephalopathy, unspecified (principal); R47.01 Aphasia; N17.9 Acute kidney failure, unspecified; I10 Essential (primary) hypertension; G31.83 Neurocognitive disorder with Lewy bodies; J44.9 Chronic obstructive pulmonary disease, unspecified; Z79.82 Long term (current) use of aspirin; Z79.899 Other long term (current) drug therapy; Z86.73 Personal history of transient ischemic attack (TIA), and cerebral infarction without residual deficits; H40.9 Unspecified glaucoma; H54.8 Legal blindness, as defined in USA; Z87.891 Personal history of nicotine dependence; L30.9 Dermatitis, unspecified